=== PATIENT | female | born 1950 | race Caucasian/White ===

== ENCOUNTER → 2017-05-08 | Outpatient (CLI) | payer BC ==
[~2017-05-08] MED LIST: HCT25T
== END ==
LOC: RAD 10:05
PROVIDERS: ATTEND Family Medicine
DX: Z12.31 Encounter for screening mammogram for malignant neoplasm of breast (principal)
CPT/HCPCS: 77067

== ENCOUNTER → 2018-04-10 | Outpatient (CLI) | payer MEDICARE, OTHER ==
--- NOTE | 2018-04-10 13:29 | Diagnostic Imaging Report ---
CLINICAL INDICATION: Patient had eye injury in December. In January started having headache. Patient has some eye issues. EXAM: Axial CT scan of the brain performed without IV contrast. COMPARISON: None. FINDINGS: There is no evidence of acute cerebral infarct, intracranial hemorrhage, or gross mass effect. The brain parenchymal volume appears appropriate for patient's age. There is a small chronic lacunar infarct versus prominent perivascular space in the left subputaminal region. There is normal hayden-white matter distinction. There is no significant midline shift or herniation. There is no evidence of hydrocephalus. The basal cisterns are unremarkable. The skull, extracranial soft tissue, and orbits are unremarkable. There is mild mucosal thickening involving the right maxillary sinus. Temporal bones show no significant abnormality. IMPRESSION: 1: Unremarkable CT scan of the brain for age. There is no acute intracranial process. 2: Mild right maxillary sinus disease. Dictated by: Dictated on workstation # [id number]
== END ==
LOC: RAD 10:55
PROVIDERS: ATTEND Family Medicine
DX: R51 Headache (principal); Z87.828 Personal history of other (healed) physical injury and trauma
CPT/HCPCS: 70450

== ENCOUNTER → 2018-05-11 | Outpatient (CLI) | payer MEDICARE, OTHER ==
--- NOTE | 2018-05-11 11:57 | Diagnostic Imaging Report ---
INDICATION: Routine screening. Comparison is made with prior mammogram from 05/08/2017 and 05/07/2016. 2-D and 3-D bilateral screening mammography was performed with CAD. The current study was also evaluated with a Computer Aided Detection (CAD) system. FINDINGS: Both breasts are heterogeneously dense, limiting the sensitivity of mammography. There are benign calcifications in both breasts. No mass or malignant-appearing microcalcifications are seen. The axillae are unremarkable. IMPRESSION: No mammographic features suspicious for malignancy are identified. ACR BI-RADS Category 2: Benign findings. Result letter will be mailed to the patient. Note: At least 10% of breast cancer is not imaged by mammography. Dictated by: Dictated on workstation # [id number]
== END ==
LOC: RAD 09:02
PROVIDERS: ATTEND Family Medicine
DX: Z12.31 Encounter for screening mammogram for malignant neoplasm of breast (principal)
CPT/HCPCS: 77067

== ENCOUNTER → 2019-05-17 | Outpatient (CLI) | payer MEDICARE, OTHER ==
--- NOTE | 2019-05-17 10:53 | Diagnostic Imaging Report ---
INDICATION: Screening TECHNIQUE: The current study was also evaluated with a Computer Aided Detection (CAD) system. 3D Tomographic imaging was also performed. 3D tomosynthesis was performed and reviewed. COMPARISON: 05/11/2018, 05/08/2017, and 05/07/2016. FINDINGS: The fibroglandular tissue is heterogeneously dense bilaterally. There are a few benign type calcifications. There is an area of slightly more clustered calcifications in the superior subareolar region of the left breast. There is no dominant mass or spiculated lesion. The skin, nipples, and axillae are unremarkable. IMPRESSION: Cluster of microcalcifications in the superior subareolar region of the left breast. These should be further characterized with magnification compression views. ACR BI-RADS Category 0: Incomplete. (Needs additional imaging evaluation). Result letter will be mailed to the patient. Note: At least 10% of breast cancer is not imaged by mammography. Dictated by: Dictated on workstation # [id number]
== END ==
LOC: RAD 08:53
PROVIDERS: ATTEND Family Medicine
DX: Z12.31 Encounter for screening mammogram for malignant neoplasm of breast (principal); R92.0 Mammographic microcalcification found on diagnostic imaging of breast
CPT/HCPCS: 77067

== ENCOUNTER → 2019-05-26 | Outpatient (CLI) | payer MEDICARE, OTHER ==
--- NOTE | 2019-05-26 09:33 | Diagnostic Imaging Report ---
INDICATION: Left breast calcifications. Patient presents for additional views. COMPARISON: Correlation is made with the screening mammogram from 05/17/2019. TECHNIQUE: Unilateral left 2D and 3D diagnostic mammography was performed with CAD including magnification CC and ML views as well as a 90 degree lateral view. FINDINGS: Calcifications in the superior retroareolar left breast are noted. These appear to be primarily punctate. These appear to have been present for several years. No pleomorphism is detected. IMPRESSION: There are benign-appearing calcifications in the retroareolar and superior left breast. The patient may return to routine annual screening mammography. ACR BI-RADS Category 2: Benign findings. Result letter will be mailed to the patient. Note: At least 10% of breast cancer is not imaged by mammography. Dictated by: Dictated on workstation # [id number]
== END ==
LOC: RAD 09:02
PROVIDERS: ATTEND Family Medicine
DX: R92.0 Mammographic microcalcification found on diagnostic imaging of breast (principal)

== ENCOUNTER → 2020-06-06 | Outpatient (CLI) | payer MEDICARE, OTHER ==
--- NOTE | 2020-06-06 10:57 | Diagnostic Imaging Report ---
INDICATION: Screening. TECHNIQUE: The current study was also evaluated with a Computer Aided Detection (CAD) system. 3-D Tomographic imaging was also performed. COMPARISON: 05/17/2019, 05/11/2018, and 05/08/2017. FINDINGS: The fibroglandular tissue is heterogeneously dense bilaterally. There are a few benign-type calcifications. There is no dominant mass, spiculated lesion, or suspicious calcification identified. The skin, nipples, and axilla are unremarkable. IMPRESSION: Benign findings as above. ACR BI-RADS Category 2: Benign findings. Result letter will be mailed to the patient. Note: At least 10% of breast cancer is not imaged by mammography. Dictated by: Dictated on workstation # [id number]
== END ==
LOC: RAD 09:13
PROVIDERS: ATTEND Family Medicine
DX: Z12.31 Encounter for screening mammogram for malignant neoplasm of breast (principal)
CPT/HCPCS: 77063; 77067

== ENCOUNTER 2020-07-14 09:24 | Outpatient (CLI) | payer MEDICARE ==
[~2020-07-14] VITALS: Ht 160 cm; Wt 88.5 kg
[2020-07-14 09:18] VITALS: BP 136/92
[2020-07-14] MEDS ORDERED: EPINEPHrine INJECTION 1 MG/ML AMP IM PRN (09:45)
[2020-07-14] MEDS ORDERED: diphenhydrAMINE 50 MG/ML INJ (BENADRYL) IV PRN (09:45)
[2020-07-14] MEDS ORDERED: BAMLANIVIMAB 700 MG in NS 200 ML IV ONE (09:45)
[2020-07-14 11:01] VITALS: BP 140/89
== END 2020-07-14 12:00 | disposition home or self-care (01) ==
LOC: INFUSION 09:24
PROVIDERS: ATTEND Nurse Practitioner Family
DX: U07.1 COVID-19 (principal); I10 Essential (primary) hypertension

== ENCOUNTER → 2020-09-21 | Outpatient (CLI) | payer MEDICARE, OTHER ==
--- NOTE | 2020-09-21 17:29 | Diagnostic Imaging Report ---
PROCEDURE: Pelvic comp/transvaginal sonogram. TECHNIQUE: Complete transabdominal and transvaginal pelvic ultrasound was performed. In addition, limited pelvic Doppler was performed. INDICATION: Pelvic pain and lower abdominal pain. Uterus is anteverted measuring 7.0 x 3.2 x 4.7 cm. Endometrium is 7 mm in thickness. No myometrial mass is detected. Right ovary measures 1.4 x 1.0 x 2.1 cm and left ovary measures 1.9 x 1.9 x 2.2 cm. There is blood flow to both ovaries. No adnexal mass or free fluid is detected. IMPRESSION: Unremarkable transabdominal and transvaginal pelvic ultrasound. Dictated by: Dictated on workstation # [id number]
== END ==
LOC: RAD 10:43
PROVIDERS: ATTEND Nurse Practitioner Family
DX: R10.2 Pelvic and perineal pain (principal)
CPT/HCPCS: 76830; 76856

== ENCOUNTER → 2020-09-26 | Outpatient (CLI) | payer MEDICARE, OTHER | LOC: CARD 08:53 | PROVIDERS: ATTEND Family Medicine | DX: I49.9 Cardiac arrhythmia, unspecified (principal) | CPT/HCPCS: 93005 ==

== ENCOUNTER → 2020-10-02 | Outpatient (CLI) | payer MEDICARE, OTHER | LOC: CARD 08:04 | PROVIDERS: ATTEND Family Medicine | DX: I49.9 Cardiac arrhythmia, unspecified (principal) | CPT/HCPCS: 93225; 93226 ==

== ENCOUNTER → 2020-10-12 | Outpatient (CLI) | payer MEDICARE, OTHER ==
--- NOTE | 2020-10-12 11:51 | Diagnostic Imaging Report ---
PROCEDURE: CT abdomen and pelvis without contrast. TECHNIQUE: Multiple contiguous axial images were obtained through the abdomen and pelvis without the use of intravenous contrast. Auto Exposure Controls were utilized during the CT exam to meet ALARA standards for radiation dose reduction. INDICATION: Right-sided pain, tenderness, spasm and symptoms of one months' duration. Compared with CT abdomen and pelvis performed from August 2013. FINDINGS: The uterus, adnexa and urinary bladder appeared unremarkable. There is no appendicitis or diverticulitis. There are no opaque urinary tract stones and there is no hydroureteronephrosis. No perinephric or periureteric edema. No hernia or abdominal wall fluid collection. The gallbladder surgically absent. No pathological distention of the bile ducts. Pancreas nonacute. The spleen and adrenals negative. There is no ileus or bowel obstruction. IMPRESSION: Unremarkable noncontrasted CT abdomen and pelvis. Dictated by: Dictated on workstation # [id number]
== END ==
LOC: RAD 11:21
PROVIDERS: ATTEND Family Medicine
DX: R10.31 Right lower quadrant pain (principal); R10.10 Upper abdominal pain, unspecified; R10.819 Abdominal tenderness, unspecified site
CPT/HCPCS: 74176

== ENCOUNTER → 2020-10-25 | Outpatient (CLI) | payer MEDICARE, OTHER ==
[~2020-10-25] VITALS: Ht 160 cm; Wt 90.0 kg
[~2020-10-25] MED LIST changes: +CATHETER FLUSH 10 ML SYR IV PRN
[2020-10-25 09:53] VITALS: BP 172/102
--- NOTE | 2020-10-25 14:28 | Cardiology Stress Test Report ---
Stress Test Report Date of Procedure/Referring: Date of Procedure: Oct 25, 2020 PCP Orly Almendarez MD Admitting Physician Marleny Greenfield DO Indications: HTN Baseline Heart Rate: 82 Baseline Blood Pressure: Blood Pressure Systolic: 172 Blood Pressure Diastolic: 102 Vital Signs Date Time Temp Pulse Resp B/P (MAP) Pulse Ox O2 Delivery O2 Flow Rate FiO2 10/25/20 09:53 96 172/102 (125) Baseline Vital Signs Vital Signs Date Time Temp Pulse Resp B/P (MAP) Pulse Ox O2 Delivery O2 Flow Rate FiO2 10/25/20 09:53 96 172/102 (125) Baseline EKG: Baseline EKG: NSR Summary: After explaining the procedure and details to the patient, she signed the consent and was brought to the stress nuclear laboratory. Patient exercised on standard Mason protocol, EKG, heart rate and blood pressure were monitored continuously, resting and stress doses of radio tracer were injected, imaging was acquired and reviewed in the short axis, horizontal long axis and vertical long axis views Patient was able to exercise for a total of 3 minutes on Mason protocol, METs 4.6 Maximum heart rate 148 Maximum blood pressure 196/100 Stress EKG, Minimal nondiagnostic changes Recovery EKG, Return to baseline TID: 1.18 SSS: 0 SDS: 0 EF: 70 Conclusion: 1. Poor exercise tolerance for a total of 3 minutes on standard Mason protocol, 4.6 METS achieving 97% of maximal expected heart rate 2. Frequent atrial premature contractions noted through follow-up test with minimal nondiagnostic EKG changes resolved during recovery 3. No significant ischemia or infarction on SPECT images 4. Normal left ventricular size, EF 70% ORLY ALMENDAREZ MD Oct 25, 2020 14:28
== END ==
LOC: CARD 08:30
PROVIDERS: ATTEND Internal Medicine Cardiovascular Disease
DX: I10 Essential (primary) hypertension (principal); E78.2 Mixed hyperlipidemia
CPT/HCPCS: 78452; 93017; A9502

== ENCOUNTER → 2020-10-27 | Outpatient (CLI) | payer MEDICARE, OTHER ==
[~2020-10-27] MED LIST changes: -CATHETER FLUSH 10 ML SYR IV PRN
== END ==
LOC: CARD 14:00
PROVIDERS: ATTEND Internal Medicine Cardiovascular Disease
DX: I11.9 Hypertensive heart disease without heart failure (principal); I36.1 Nonrheumatic tricuspid (valve) insufficiency; E78.2 Mixed hyperlipidemia; Z86.16 Personal history of COVID-19
CPT/HCPCS: 93306

== ENCOUNTER → 2021-02-02 | Outpatient (CLI) | payer MEDICARE, OTHER | LOC: LAB 11:37 | PROVIDERS: ATTEND Family Medicine | DX: A04.72 Enterocolitis due to Clostridium difficile, not specified as recurrent (principal) | CPT/HCPCS: 87015; 87045; 87046; 87324; 87449; 87493; 87899 ==

== ENCOUNTER → 2021-06-11 | Outpatient (CLI) | payer MEDICARE, OTHER ==
--- NOTE | 2021-06-11 17:01 | Diagnostic Imaging Report ---
EXAMINATION: Digital mammogram bilateral screening with CAD. INDICATION: Screening. COMPARISON: This study was compared to the prior exams of 06/06/2020, 05/17/2019, and 05/11/2018. PERSONAL HISTORY: At this time, there are no current complaints. FINDINGS: The fibroglandular tissue in both breasts is heterogeneously dense. This does limit the sensitivity of this exam. Overall, there does not appear to have been any significant change when compared to the prior study. No primary or secondary sign of malignancy is noted. IMPRESSION: There is no radiographic evidence for malignancy. ACR BI-RADS Category 1: Negative. Result letter will be mailed to the patient. Note: At least 10% of breast cancer is not imaged by mammography. Dictated by: Dictated on workstation # [id number]
== END ==
LOC: RAD 09:30
PROVIDERS: ATTEND Family Medicine
DX: Z12.31 Encounter for screening mammogram for malignant neoplasm of breast (principal)
CPT/HCPCS: 77063; 77067

== ENCOUNTER → 2022-06-14 | Outpatient (CLI) | payer MEDICARE, OTHER ==
--- NOTE | 2022-06-14 15:32 | Diagnostic Imaging Report ---
Indication: Routine screening. Comparison is made with prior mammograms 06/11/2021 and 06/06/2020. 2-D and 3-D bilateral screening mammography was performed with CAD. Both breasts are heterogeneously dense, limiting the sensitivity of mammography. No new mass or malignant-appearing microcalcifications are seen. Axillae are unremarkable. IMPRESSION: BI-RADS Category 1 No mammographic features suspicious for malignancy are identified. ACR BI-RADS Category 1: Negative. Result letter will be mailed to the patient. Note: At least 10% of breast cancer is not imaged by mammography. Dictated by: Dictated on workstation # [id number]
== END ==
LOC: RAD 08:00
PROVIDERS: ATTEND Family Medicine
DX: Z12.31 Encounter for screening mammogram for malignant neoplasm of breast (principal)
CPT/HCPCS: 77063; 77067

== ENCOUNTER 2022-08-01 05:36 | Outpatient (CLI) | payer MEDICARE, OTHER ==
[~2022-08-01] VITALS: Ht 160 cm; Wt 84.4 kg
[2022-08-01] MEDS ORDERED: VITA400T9 PO (10:47)
[2022-08-01] MEDS ORDERED: LACT1CAP62 PO (10:47)
[2022-08-01] MEDS ORDERED: POTA8CAP20 PO (10:47)
[2022-08-01] MEDS ORDERED: ASPI-1238 PO (10:47)
[2022-08-01] MEDS ORDERED: ASCO100025 PO (10:47)
[2022-08-01] MEDS ORDERED: HYDR25TA4 PO (10:47)
[2022-08-01] MEDS ORDERED: OMEP40CA6 PO (10:47)
[2022-08-01] MEDS ORDERED: COLE1TAB PO (10:47)
[2022-08-01] MEDS ORDERED: ROSU5TAB13 PO (10:47)
[2022-08-01] MEDS ORDERED: NF-VITD400 PO (10:47)
[2022-08-01] MEDS ORDERED: LOSA100T57 PO (10:47)
[2022-08-01] MEDS ORDERED: MAGN400T39 PO (10:47)
[2022-08-01] MEDS ORDERED: MTP100TCR PO (10:47)
== END 2022-08-01 10:49 | disposition home or self-care (01) ==
LOC: PREOP 05:36
PROVIDERS: ATTEND Internal Medicine
DX: Z01.818 Encounter for other preprocedural examination (principal)

== ENCOUNTER 2022-08-09 09:58 | Day surgery (SDC) | payer MEDICARE, OTHER ==
--- NOTE | 2022-08-01 07:40 | HISTORY AND PHYSICAL ---
COLONOSCOPY HISTORY AND PHYSICAL HISTORY OF PRESENT ILLNESS: The patient is a 72-year-old white female referred for screening colonoscopy as well as diagnostic EGD. She reports another colonoscopy in 2007 which she believes was unremarkable. She does have a grandmother who was diagnosed with colon cancer in her 70s and a grandfather who had stomach cancer. She reports longstanding reflux symptoms, which over the past several weeks, have gotten progressively worse despite daily omeprazole. She has increased the medicine 40 mg tabs to twice a day only with a little improvement. She reports no past history of EGD with proton pump inhibitor therapy use for many years. She denies melena or bright red blood per rectum. There has been no change in bowel habits. She believes that her weight has been stable as well. PAST MEDICAL HISTORY: Significant for hypertension and hyperlipidemia as well as reflux with no known history of coronary artery disease. She has not taken it for the last week, but had been taking a baby aspirin daily. She is on no other form of antiplatelet therapy. MEDICAL HISTORY: As per HPI. PAST SURGICAL HISTORY: She had a cholecystectomy 25 years ago. She has had right sided foot surgery in the distant past and has a child with tonsillectomy. FAMILY HISTORY: As noted in the HPI. REVIEW OF SYSTEMS: CONSTITUTIONAL: Denies night sweats, chills, fever or change in weight. GASTROINTESTINAL: As noted in the HPI. PULMONARY: Denies cough, wheezing or shortness of breath. CARDIOVASCULAR: Denies orthopnea, PND, pedal edema or chest discomfort. PHYSICAL EXAMINATION: GENERAL: Reveals pleasant white female who did not appear to be in acute distress. VITAL SIGNS: Weight 186 pounds, blood pressure 120/82, heart rate 70 and regular. HEENT: Unremarkable. No evidence for scleral icterus or pallor. CHEST: Clear to auscultation. CARDIOVASCULAR: Reveals a regular rate and rhythm without murmur, S3, or S4. ABDOMEN: Soft, supple without mass or organomegaly and mild epigastric discomfort to palpation without rebound or guarding. No bruits noted. Bowel sounds positive. EXTREMITIES: Revealed no cyanosis, clubbing or edema. ASSESSMENT AND PLAN: The patient is being set up for screening colonoscopy. Prep instructions and questions were answered. Electronic medical record reviewed. She will also undergo diagnostic EGD due to longstanding reflux recently refractory to proton pump inhibitor therapy. Thank you for the referral of this pleasant lady. Job ID: [id number] DocumentID: [id number] Dictated Date: 07/31/2022 11:43:09 Employee Communications Intern Date: 07/31/2022 12:16:00 Dictated By: PRISCILLA LOCKHART MD
[~2022-08-09] VITALS: Ht 160 cm; Wt 84.4 kg
[~2022-08-09 09:58] MED LIST changes: +ASCO100025 PO; +ASPI-1238 PO; +COLE1TAB PO; +HYDR25TA4 PO; +LACT1CAP62 PO; +LOSA100T57 PO; +MAGN400T39 PO; +MTP100TCR PO; +NF-VITD400 PO; +OMEP40CA6 PO; +POTA8CAP20 PO; +ROSU5TAB13 PO; +VITA400T9 PO
[2022-08-09] MEDS ORDERED: LACTATED RINGERS 1,000 ML IV STA (10:04)
[2022-08-09] MEDS ORDERED: HURRICAINE EXT TUBE (BENZOCAINE) XX PRN (10:15)
[2022-08-09 10:19] VITALS: BP 136/75
--- NOTE | 2022-08-09 10:36 | Pre-Op Note & Conscious Sedat ---
Pre-Operative Progress Note Date H&P Reviewed: Aug 09, 2022 Time H&P Reviewed: 10:35 History & Physical: H&P Reviewed, Patient Examed, No changes noted Pre-Op Diagnosis: Screening colon Gerd refractory to PPI Rx. Conscious Sedation Pre-Proced ASA Score 2 For ASA 3 and 4: Consider anesthesia and medical clearance. Also, for patients with a history of failed moderate sedation consider anesthesia. Airway Lungs Heart ASA score ASA 1: a normal healthy patient ASA 2: a patient with a mild systemic disease (mid diabetes, controlled hypertension, obesity ASA 3: a patient with a severe systemic disease that limits activity (angina, COPD, prior Myocardial infarction) ASA 4: a patient with an incapacitating disease that is a constant threat to life (CHF, renal failure) ASA 5: a moribund patient not expected to survive 24 hrs. (ruptured aneurysm) ASA 6: a declared brain- patient whose organs are being harvested. For emergent operations, add the letter E after the classification Mallampati Classification Grade 2 Sedation Plan Analgesia, Amnesia, Plan communicated to team members, Discussed options with patient/fam, Discussed risks with patient/fam The patient is an appropriate candidate to undergo the planned procedure, sedation, and anesthesia. The patient immediately re-assessed prior to indication. PRISCILLA LOCKHART MD Aug 09, 2022 10:36
[2022-08-09] MEDS ORDERED: PROPOFOL INJECTION 50 ML IV ONE (11:11)
[2022-08-09] MEDS ORDERED: proPOfol 200 MG/20 ML (DIPRIVAN) VIAL IV ONE (11:45)
[2022-08-09 11:50] VITALS: BP 127/74
--- NOTE | 2022-08-09 11:53 | Progress Note-Post Operative ---
Post-Procedure Note Physician (s)/Packaging Line Attendant (s) Physician PRISCILLA LOCKHART MD Pre-Procedure Diagnosis Pre-Procedure Diagnosis: Screening colon Gerd refractory to PPI Rx. Post-Procedure Diagnosis Post-operative diagnosis: The upper endoscope was inserted into the oral cavity and under direct visualization the esophagus is intubated. The endoscope was passed down the esophagus to stomach and second portion of the duodenum. A careful inspection was made as the endoscope was withdrawn. Findings: The posterior pharynx other than narrowing due to fatty hypertrophy was unremarkable as well as the epiglottis arytenoid aperture and true and false vocal folds. Proximal mid and distal esophagus were unremarkable. There is a moderate sized 3 cm hiatal hernia present with a centimeter or 2 of the stomach being present above the level of the diaphragm there is no evidence for erosive esophagitis. A biopsy from the distal esophagus was obtained and submitted for evaluation for eosinophilic esophagitis. Cardia stomach was unremarkable several small fundal appearing polyps were noted in the fundus which was otherwise unremarkable. There are some linear erythema without evidence for erosion in the antrum biopsy was obtained and submitted for histopathology and H. pylori evaluation. the pylorus the pyloric channel duodenal bulb and second portion were unremarkable with no evidence for peptic ulcer disease. A/P 1 moderate proximal 3 cm hiatal hernia is present without evidence for erosive esophagitis. Esophageal biopsy to evaluate for eosinophilic esophagitis was performed. Several small fundal appearing polyps were noted. mild linear antral gastritis is present biopsies were Helicobacter and histopathology are pending. The patient does report significant improvement with reflux symptoms on twice daily proton pump inhibitor therapy so she was advised to continue this. She will need a new prescription reflecting the increase in dosage and was advised to call Dr. Greenfield's office. We then proceeded with colonoscopy. Prior to undergoing colonoscopy digital rectal evaluation was performed. Anal central tone was normal and the perianal reflexes intact. No abnormalities noted on digital inspection anal canal or distal rectal vault. The colonoscope was then inserted into the rectum and under direct visualization advanced to the cecum. The cecum was identified by identification of the Ileocecal valve and cecal strap. Photographic documentation was obtained. A careful inspection was made as the colonoscope withdrawn. Quality the prep was good. findings: There were no evidence for internal or external hemorrhoids. The rectum sigmoid colon descending colon splenic flexure transverse colon hepatic flexure ascending colon and cecum were unremarkable with no Ensz or diverticular disease or evidence for neoplasia. Assessment normal colonoscopy to the cecum considering patient's age would not advocate future screening colonoscopy. PRISCILLA LOCKHART MD Aug 09, 2022 11:53
[2022-08-09 11:55] VITALS: BP 129/71
[2022-08-09 12:00] VITALS: BP 136/63
--- NOTE | 2022-08-14 09:10 | Anesthesia-General Post-Op ---
MAC Significant Intra-Op Events Notes late entry 08/09/22@1200 Patient Condition Mental Status/LOC: Same as Preop Cardiovascular: Satisfactory Nausea/Vomiting: Absent Respiratory: Satisfactory Pain: Controlled Complications: Absent Post Op Complications Complications None Follow Up Care/Instructions Patient Instructions None needed. Anesthesiology Discharge Order Discharge Order Patient is doing well, no complaints, stable vital signs, no apparent adverse anesthesia problems. No complications reported per nursing. HUDSON HUFFMAN CRNA Aug 14, 2022 09:10
== END 2022-08-09 12:43 | disposition home or self-care (01) ==
LOC: ENDO 09:58
PROVIDERS: ATTEND Internal Medicine
DX: Z12.11 Encounter for screening for malignant neoplasm of colon (principal); K21.9 Gastro-esophageal reflux disease without esophagitis; K44.9 Diaphragmatic hernia without obstruction or gangrene; K31.7 Polyp of stomach and duodenum; K29.70 Gastritis, unspecified, without bleeding; Z79.899 Other long term (current) drug therapy; Z80.0 Family history of malignant neoplasm of digestive organs; E66.9 Obesity, unspecified; Z68.32 Body mass index [BMI] 32.0-32.9, adult; Z79.82 Long term (current) use of aspirin
CPT/HCPCS: 43239; G0105

== ENCOUNTER → 2022-10-22 | Outpatient (CLI) | payer MEDICARE, OTHER ==
--- NOTE | 2022-10-22 13:26 | Diagnostic Imaging Report ---
INDICATION: Postmenopausal state. COMPARISON: None available FINDINGS: AP Spine L1-L4: [BMD (g/cm2): 1.248] [T-Score: 0.4] [Z-Score: 1.3] [BMD Previous: na] [BMD % Change: na] LT Hip Neck: [BMD (g/cm2): 0.976] [T-Score: -0.4] [Z-Score: 0.7] LT Hip Total: [BMD (g/cm2):1.072] [T-Score:0.8] [Z-Score: 1.4] [BMD Previous: na] [BMD % Change: na] RT Hip Neck: [BMD (g/cm2):1.002] [T-Score:-0.3] [Z-Score:0.9] RT Hip Total: [BMD (g/cm2):1.082] [T-score:0.6] [Z-Score:1.5] [BMD Previous:na] [BMD % Change:na] *Indicates significant change from prior examination based on 95% confidence level. World Health Organization criteria for BMD interpretation classify patients as Normal (T-score at or above -1.0), Osteopenic (T-score between -1.0 and -2.5) or Osteoporotic (T-score at or below -2.5). LIMITATIONS AND MODIFICATION: None. IMPRESSION: 1. Normal bone mineral density. 2. Baseline examination. 3. See below National Osteoporosis Foundation guidelines on when to potentially initiate pharmacologic therapy. Based on the National Osteoporosis Foundation Guidelines, pharmacologic treatment should be initiated in any of the following, unless clinical conditions suggest otherwise: * Any patient with prior fragility fracture of the hip or vertebrae. A spine fracture indicates 5X risk for subsequent spine fracture and 2X risk for subsequent hip fracture. * Osteoporosis (T-score <-2.5). * Postmenopausal women and men age 50 and older with low bone mass/osteopenia (T-score between -1.0 and -2.5) by DXA and 10-year major osteoporotic fracture greater than 20% or a 10-year probability of hip fracture greater than 3%. These fracture risks are supplied above in the FRAX score, if applicable. * Clinician judgement and/or patient preferences may indicate treatment for people with 10-year fracture probabilities above or below these levels. Dictated by: Dictated on workstation # [id number]
== END ==
LOC: RAD 08:13
PROVIDERS: ATTEND Family Medicine
DX: Z78.0 Asymptomatic menopausal state (principal)
CPT/HCPCS: 77080

== ENCOUNTER → 2023-01-22 | Outpatient (CLI) | payer MEDICARE, OTHER ==
[~2023-01-22] MED LIST changes: -LOSA100T57 PO; +LOSA100T58 PO
--- NOTE | 2023-01-22 15:23 | Diagnostic Imaging Report ---
INDICATION: Fall. Back pain. COMPARISON: None FINDINGS: Frontal and lateral views of the lumbar spine were obtained. Evaluation of static alignment shows slight grade 1 anterolisthesis at L4-L5. There is no evidence of jumped facets. Vertebral body heights are maintained. There is no acute fracture. Mild multilevel degenerative changes are noted. Included small bowel loops are nondilated. IMPRESSION:. No acute fracture or dislocation of the lumbar spine. Dictated by: Dictated on workstation # [id number]
--- NOTE | 2023-01-22 15:27 | Diagnostic Imaging Report ---
INDICATION: Back pain. COMPARISON: None. FINDINGS: Frontal and lateral radiographic views of the thoracic spine were obtained. The lateral view suggests asymmetric vertebral body height loss of a lower thoracic vertebra, presumably T11. This is age-indeterminate and may be exaggerated by positioning. Static alignment is maintained. Advanced multilevel degenerative changes are also present and consist of intervertebral disc height loss with prominent anterior endplate osteophyte formations. Included portions of the lungs are clear. IMPRESSION: Asymmetric vertebral body height loss involving a lower thoracic vertebral body, presumably T11. Again, this may be exaggerated by positioning. Fracture is not excluded. Dictated by: Dictated on workstation # [id number]
== END ==
LOC: RAD 10:00
PROVIDERS: ATTEND Nurse Practitioner Family
DX: M51.34 Other intervertebral disc degeneration, thoracic region (principal); M47.814 Spondylosis without myelopathy or radiculopathy, thoracic region; M54.50 Low back pain, unspecified; G89.29 Other chronic pain
CPT/HCPCS: 72070; 72100

== ENCOUNTER → 2023-06-02 | Outpatient (CLI) | payer MEDICARE, OTHER ==
--- NOTE | 2023-06-02 10:13 | Diagnostic Imaging Report ---
CLINICAL INDICATION: Patient with neuralgia and neuritis for 2 to 3 months. EXAM: Axial CT scan of the brain performed without IV contrast. Auto Exposure Controls were utilized during the CT exam to meet ALARA standards for radiation dose reduction. COMPARISON: Head CT without contrast dated 04/10/2018. FINDINGS: There is no evidence of acute cerebral infarct, intracranial hemorrhage, or gross mass effect. The brain parenchymal volume appears appropriate for patient's age. There is normal hayden-white matter distinction. There is no significant midline shift or herniation. There is no evidence of hydrocephalus. The basal cisterns are unremarkable. The skull, extracranial soft tissue, and orbits are unremarkable. Stable small mucus retention cyst involving the right maxillary sinus. Temporal bones show no significant abnormality. IMPRESSION: Stable CT scan of the brain with no interval evidence of acute intracranial process. Dictated by: Dictated on workstation # [id number]
== END ==
LOC: RAD 09:12
PROVIDERS: ATTEND Family Medicine
DX: M79.2 Neuralgia and neuritis, unspecified (principal); I63.81 Other cerebral infarction due to occlusion or stenosis of small artery; S09.90XS Unspecified injury of head, sequela; R51.9 Headache, unspecified
CPT/HCPCS: 70450

== ENCOUNTER → 2023-06-16 | Outpatient (CLI) | payer MEDICARE, OTHER ==
--- NOTE | 2023-06-16 08:40 | Diagnostic Imaging Report ---
CLINICAL INDICATION: Patient has pain in her head and upper cervical spine pain. Exam: MRI of the brain performed without IV contrast. Sequences include axial DWI, ADC map, axial T1, axial T2, axial FLAIR, axial gradient echo, and sagittal T1. Comparison: Head CT without contrast dated 06/02/2023. Findings: There is no evidence of acute cerebral infarct, intracranial hemorrhage, or gross mass effect. The brain parenchymal volume appears appropriate for patient's age. There is normal hayden-white matter distinction. There is no significant midline shift or herniation. The visualized [place] vascular structures are unremarkable. There is no evidence of hydrocephalus. The basal cisterns are unremarkable. The skull, extracranial soft tissue, and orbits are unremarkable. There is a miixp-xl-iricyqcy-sized mucous retention cyst involving the right maxillary sinus. Temporal bones show no significant abnormality. IMPRESSION: 1: Unremarkable MRI of the brain for age. 2: There is right maxillary sinus disease. Dictated by: Dictated on workstation # [id number]
--- NOTE | 2023-06-16 09:39 | Diagnostic Imaging Report ---
PROCEDURE: MR imaging cervical spine without contrast. TECHNIQUE: Multiplanar, multisequence MR imaging of the cervical spine was performed without contrast. DATE: June 16, 2023. COMPARISON: None. INDICATION: 72-year-old female, neck pain. FINDINGS: There is exaggeration of the normal cervical lordosis. There is no evidence of a diffuse marrow infiltrating or replacing process. There is no identified focal concerning bone lesion. There is no identified abnormal signal in the imaged portions of the spinal cord. The disc heights are well preserved. C2-C3: There is no disc bulge. The uncovertebral and facet joints are unremarkable. There is no foraminal narrowing. There is no spinal canal stenosis. C3-C4: There is a posterior disc/osteophyte complex. The uncovertebral and facet joints are unremarkable. There is no foraminal narrowing. There is no spinal canal stenosis. C4-C5: There is a small posterior disc/osteophyte complex. The uncovertebral and facet joints are unremarkable. There is no foraminal narrowing. There is no spinal canal stenosis. C5-C6: There is a posterior disc/osteophyte complex eccentric to the right. The uncovertebral and facet joints are unremarkable. There is mild to moderate right foraminal narrowing. There is moderate spinal canal stenosis. C6-C7: There is a posterior disc/osteophyte complex. There are mild bilateral uncovertebral degenerative changes. There is mild right and moderate left foraminal narrowing. There is no high-grade spinal canal stenosis. C7-T1: There is no disc bulge. The uncovertebral and facet joints are unremarkable. There is no foraminal narrowing. There is no spinal canal stenosis. IMPRESSION: 1. Multilevel disc and uncovertebral degenerative changes of the cervical spine as described level by level above. Findings are most notable at C5-C6. 2. No identified abnormal cord signal. 3. No focal concerning bone lesion, fracture, or other bone marrow signal abnormality. Dictated by: Dictated on workstation # [id number]
== END ==
LOC: RAD 08:00
PROVIDERS: ATTEND Family Medicine
DX: M48.02 Spinal stenosis, cervical region (principal); M25.78 Osteophyte, vertebrae; J32.0 Chronic maxillary sinusitis; M79.2 Neuralgia and neuritis, unspecified; I63.81 Other cerebral infarction due to occlusion or stenosis of small artery; S09.90XS Unspecified injury of head, sequela
CPT/HCPCS: 70551; 72141